=== PATIENT | female | born 1995 | race Two or more races ===

== ENCOUNTER → 2024-12-01 | Emergency (ER) | payer OTHER ==
[~2024-12-01] VITALS: Ht 157.5 cm; Wt 86.2 kg
[~2024-12-01] MED LIST: FAMOTIDINE/PF 20 MG/2 ML VIAL ONE; FAMOtidine 10 MG/ML (4ML VIAL) IV PUSH ONE; ONDANSETRON 4 MG TAB.RAPDIS PO ONE; ONDANSETRON HCL 2 MG/ML VIAL IM ONE; ONDANSETRON HCL 2 MG/ML VIAL ONE; PEPCID AC20 MG PO; ZOFRAN8 MG PO
[2024-12-01 11:11] LABS: HEMATOCRIT 37.4 % (36.0-45.00); HEMOGLOBIN 12.3 g/dL (12.0-15.00); MEAN CELL VOLUME 79.3 fL (80.00-100.00); MEAN CORPUSCULAR HGB CONC 32.8 g/dl (32.0-36.0); PLATELET COUNT 273 K/uL (150-450); RED BLOOD COUNT 4.72 M/uL (4.00-6.00)
== END | disposition home or self-care (01) ==
LOC: ER 09:27
PROVIDERS: General Practice
DX: K29.70 Gastritis, unspecified, without bleeding (principal); Z20.822 Contact with and (suspected) exposure to COVID-19

== ENCOUNTER 2025-02-06 17:52 | Emergency (ER) | payer OTHER ==
[~2025-02-06] VITALS: Ht 160 cm; Wt 83.5 kg
[~2025-02-06 17:52] MED LIST changes: -FAMOTIDINE/PF 20 MG/2 ML VIAL ONE; -FAMOtidine 10 MG/ML (4ML VIAL) IV PUSH ONE; -ONDANSETRON 4 MG TAB.RAPDIS PO ONE; -ONDANSETRON HCL 2 MG/ML VIAL IM ONE; -ONDANSETRON HCL 2 MG/ML VIAL ONE
[2025-02-06] MEDS ORDERED: KETOROLAC TROMETHAMINE 60 MG VIAL IM ONE (22:30)
[2025-02-06] MEDS ORDERED: ORPHENADRINE CITRATE 30 MG/ML AMPUL IM ONE (22:30)
[2025-02-07] MEDS ORDERED: BACLOFEN10 MG PO (00:37)
[2025-02-07] MEDS ORDERED: DICLOFENAC SODI75 MG PO (00:37)
== END 2025-02-07 00:52 | disposition home or self-care (01) ==
LOC: ER 17:53
DX: S40.012A Contusion of left shoulder, initial encounter (principal); S70.02XA Contusion of left hip, initial encounter; S60.212A Contusion of left wrist, initial encounter; W18.39XA Other fall on same level, initial encounter; Y93.89 Activity, other specified; Y92.238 Other place in hospital as the place of occurrence of the external cause; Y99.9 Unspecified external cause status

== ENCOUNTER 2025-05-02 08:54 | Outpatient (CLI) | payer OTHER ==
[~2025-05-02 08:54] MED LIST changes: +BACLOFEN10 MG PO; +DICLOFENAC SODI75 MG PO
== END 2025-05-02 09:00 | disposition home or self-care (01) ==
LOC: SONOGRAMA 08:54
PROVIDERS: ATTEND Student in an Organized Health Care Education/Training Program
DX: N60.11 Diffuse cystic mastopathy of right breast (principal); N60.12 Diffuse cystic mastopathy of left breast

== ENCOUNTER 2025-09-08 14:00 | Outpatient (CLI) | payer OTHER | END 2025-09-08 14:10 | disposition home or self-care (01) | LOC: PPH VACUNA 14:00 | PROVIDERS: ATTEND Emergency Medicine Pediatric Emergency Medicine | DX: Z23 Encounter for immunization (principal) ==